=== PATIENT | female | born 1995 | race African-American/Black ===

== ENCOUNTER 2019-01-26 11:34 | Emergency (ER) | payer OTHER ==
[2019-01-26 11:56] VITALS: BP 99/86
--- NOTE | 2019-01-26 12:15 | UC ---
UC General HPI - HPI Summary HPI Summary: Pleasant 23 yo female c/o progressively worse sore throat, worse on right side than left. Hurts to swallow, but able to swallow. No rash. Mild frontal h/a approx 4/10. No cough / sob palpitations. No GI issues. No kwown hx mononucleosis. - History of Current Complaint Chief Complaint: UCGeneralIllness Stated Complaint: THROAT COMPLAINT,FEVER Time Seen by Provider: 01/26/19 12:13 Hx Obtained From: Patient Hx Last Menstrual Period: 01/20/19 Pain Intensity: 7 - Allergy/Home Medications Allergies/Adverse Reactions: Allergies Allergy/AdvReac Type Severity Reaction Status Date / Time No Known Allergies Allergy Verified 01/26/19 11:50 Home Medications: Home Medications Ibuprofen TAB* [Advil TAB*] 400 mg PO Q6H PRN 01/26/19 [History Confirmed ] Norgestimate-Ethinyl Estradiol [Sprintec 28 0.25-35 mg-Mcg] 1 tab PO DAILY 01/26 [History Confirmed 01/26/19] PMH/Surg Hx/FS Hx/Imm Hx Previously Healthy: Yes - Surgical History Surgical History: None - Family History Known Family History: Positive: Unknown - Social History Alcohol Use: Occasionally Substance Use Type: None Smoking Status (MU): Never Smoked Tobacco Review of Systems All Other Systems Reviewed And Are Negative: Yes Constitutional: Positive: Fatigue Skin: Positive: Negative Eyes: Positive: Negative ENT: Positive: Other - see hpi Respiratory: Positive: Negative Cardiovascular: Positive: Negative Gastrointestinal: Positive: Negative Genitourinary: Positive: Negative Motor: Positive: Negative Neurovascular: Positive: Negative Musculoskeletal: Positive: Negative Neurological: Positive: Negative Psychological: Positive: Negative Is Patient Immunocompromised?: No Physical Exam Triage Information Reviewed: Yes Appearance: Well-Nourished Vital Signs: Initial Vital Signs Temp 97.4 F 01/26/19 11:52 Pulse 73 01/26/19 11:52 Resp 20 01/26/19 11:52 BP 99/86 01/26/19 11:52 Pulse Ox 100 01/26/19 11:52 Vital Signs Reviewed: Yes Eye Exam: Normal ENT: Positive: Pharyngeal erythema, TM dull, Tonsillar exudate, Other - Both tonsils enlarged, red. Uvula midline. There is a sore on the Right tonsil. Trachea midline. Mild adenopathy. Canker sore L inner lower lip. Neck: Positive: Supple Respiratory Exam: Normal Respiratory: Positive: Chest non-tender, Lungs clear, Normal breath sounds, No respiratory distress, No accessory muscle use Cardiovascular Exam: Normal Cardiovascular: Positive: RRR, No Murmur, Pulses Normal, Brisk Capillary Refill Abdominal Exam: Normal Abdomen Description: Positive: Nontender Musculoskeletal Exam: Normal - gait steady, no arthralgia Neurological Exam: Normal - grossly nonfocal Psychological Exam: Normal - conversing easily and appropriately Skin Exam: Normal - no visible or reported rash Course/Dx - Course Course Of Treatment: RN advised pt to make sure that she uses back up control method while taking antibiotic. Reviewed coa / tx plan. Questions as posed answered to the best of my ability. Declines work note at this time. Drink plenty of water. - Diagnoses Provider Diagnosis: Tonsillitis, Canker sores oral Discharge - Sign-Out/Discharge Documenting (check all that apply): Patient Departure All imaging exams completed and their final reports reviewed: No Studies - Discharge Plan Condition: Stable Disposition: HOME Prescriptions: ceFUROXime TAB(*) [Ceftin TAB 250 MG(*)] 500 mg PO BID 10 Days #20 tab Triamcinolone DENTAL PASTE(NF) 1 applic MT TID #1 tube Patient Education Materials: Canker Sores (ED), Tonsillitis (ED) Referrals: Nora Shrestha MD [Primary Care Provider] - Additional Instructions: You have a mononucleosis test in the lab. If you do not hear from us by tomorrow afternoon, please call us to review the result of you "monospot" test. If your monospot test is negative, your blood will be tested for mononucleosis antibodies (to see if you have had an exposure already). Drink plenty of fluids. Start antibiotic only if monospot test is negative. Probiotic and / or yogurt daily, herminia if taking antibiotic. Regarding canker sores: triamcinolone dental paste as needed as prescribed Vitamin B complex, Lysine 500mg daily - both over the counter, for the duration of the canker sore. Seek medical attention for any worse or new problems. - Billing Disposition and Condition Condition: STABLE Disposition: Home
[2019-01-29 13:59] LABS: EBV Capsid Ag IgG Ab Positive (Negative); EBV Capsid Ag IgM Ab Negative (Negative); Epstein-Barr Nuclear Antigen Positive (Negative)
== END 2019-01-26 13:11 | disposition home or self-care (01) ==
LOC: UCCORT 11:34
DX: J03.90 Acute tonsillitis, unspecified (principal); K12.0 Recurrent oral aphthae
CPT/HCPCS: 36415; 86308; 86664; 86665; 87651; 99202; G0463